=== PATIENT | female | born 1960 | race Two or more races ===

== ENCOUNTER 2020-10-27 18:36 | Emergency (ER) | payer MEDICAID, OTHER ==
[~2020-10-27] VITALS: Ht 165.1 cm; Wt 63.5 kg
[2020-10-27 22:24] VITALS: BP 126/59
[2020-10-27] MEDS ORDERED: AMOXICILLIN/CLAVUL 875 MG TAB PO ONE (23:00)
[2020-10-27] MEDS ORDERED: ACETAMINOPHEN 325 MG TAB PO ONE (23:00)
[2020-10-27] MEDS ORDERED: MECLIZINE HCL 25 MG TAB PO ONE (23:00)
== END 2020-10-27 23:48 | disposition home or self-care (01) ==
LOC: ER 18:36
DX: G43.909 Migraine, unspecified, not intractable, without status migrainosus (principal); H66.91 Otitis media, unspecified, right ear
CPT/HCPCS: 70450; 99284; J8597